=== PATIENT | female | born 1995 | race Caucasian/White ===

== ENCOUNTER → 2025-09-12 13:13 | Outpatient (REF) | payer BC, SELFPAY | LOC: RAD 13:13 | PROVIDERS: ATTENDING PHYSICIAN Obstetrics & Gynecology; FAMILY PHYSICIAN Family Medicine | DX: O26.851 Spotting complicating pregnancy, first trimester (principal) | CPT/HCPCS: 76801; 76817 ==

== ENCOUNTER 2025-09-17 08:39 | Emergency (ER) | payer BC, SELFPAY ==
[2025-09-17 08:49] VITALS: BP 128/85
[2025-09-17 09:13] LABS: Urine Character Clear (Clear)
[2025-09-17 09:21] LABS: HCG, Urine Qualitative Screen Positive
--- NOTE | 2025-09-17 09:25 | ED.GENMED ---
History of Present Illness
General
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
Time Seen by Provider: 09/17/25 09:25
History of Present Illness
History of Present Illness:
FOCUSED PAST MEDICAL HISTORY
- Has had in the past
REVIEW OF OLD RECORDS
- No records this in [facility] but old records show mild to moderate preeclampsia in 2022
Note:
CHIEF COMPLAINT(S)
Vaginal bleeding during early .
HISTORY OF PRESENT ILLNESS
The patient is a 30-year-old female currently in her third , presenting with vaginal bleeding that commenced this morning. She reports this followed a chemical in May and a live in 2022. Her last menstrual
period began on July 30, making her currently seven weeks and one day . She initially had a positive test shortly before a missed period predicted to occur on August 25. The patient experienced spotting at the time of an
ultrasound conducted last week in the radiology department, which revealed no abnormalities. Today, she denies experiencing significant pain. The patient has an O-negative blood type.
PAST MEDICAL AND SURGICAL HISTORY
Reports chemical in May 2025.
SOCIAL DETERMINANTS AFFECTING HEALTH
No relevant social determinants affecting health were mentioned.
PHYSICAL EXAM
General: Alert, no acute distress.
Skin: Warm, dry.
Head: Normocephalic, atraumatic.
Neck: Supple, trachea midline.
Eye, Ears, Nose, and Throat: Oral mucosa moist.
Cardiovascular: Normal peripheral perfusion, no edema.
Respiratory: Respirations are non-labored.
Gastrointestinal: Abdomen nondistended.
Back: Normal range of motion, normal alignment.
Musculoskeletal: Normal range of motion, normal strength.
Neurological: Alert and oriented to person, place, time, and situation, No focal neurological deficit observed.
Psychiatric: Cooperative, appropriate mood and affect.
PLAN
- Repeat ultrasound to assess current status of .
- Obtain blood work, including blood type verification, due to the patients O-negative blood type.
- Administer Rho(D) immune globulin (RhoGAM) given the presence of bleeding with an Rh-negative blood type.
DIFFERENTIAL DIAGNOSIS
The Differential Diagnosis includes, in no particular order and is not limited to:
1. Threatened miscarriage
2. Ectopic
3. Subchorionic hemorrhage
4. Complete miscarriage
5. Molar
6. Implantation bleeding
7. Cervical polyps
8. Infection/inflammation of the reproductive tract
9. Coagulation disorder
10. Physiological bleeding in early
RADIOLOGY
- Ultrasound shows live IUP but also shows large subchorionic hemorrhage
LABS
- CBC normal, O- blood type, quant 57,000
SUMMARY OF ENCOUNTER
The patient, a 30-year-old female currently in her third , presented to the emergency department with vaginal bleeding during early . An ultrasound was conducted, which confirmed a normal live fetus within the uterus and ruled out
an ectopic . However, a subchorionic hemorrhage was identified, which was not present during a previous ultrasound. The patient was advised to abstain from intercourse and avoid inserting anything into the vagina until clearance by an
OB-Director Data Processing. The patient has an O-negative blood type, and it was determined that Rho(D) immune globulin (RhoGAM) administration was necessary due to the bleeding.
DISPOSITION
Discharge
ASSESSMENT
The patient presented with vaginal bleeding in early , suggestive of a subchorionic hemorrhage.
EMERGENCY TREATMENTS ADMINISTERED
Injection of Rho(D) immune globulin (RhoGAM) was administered.
MANAGEMENT OF THE PATIENTS CARE WAS DISCUSSED WITH
Contact was made with the OB-Director Data Processing at the [facility] in [place] to notify them of the subchorionic hemorrhage and to coordinate follow-up care regarding the patients condition.
PLAN
The patient was advised to follow up with her OB-Director Data Processing at the [facility] in [place]. Abstinence from intercourse and vaginal insertion were recommended until cleared by the OB-Director Data Processing.
INDEPENDENT REVIEW OF LABS AND INTERPRETATION OF TESTS
- My independent interpretation of the ultrasound reveals a normal live fetus in the uterus and a subchorionic hemorrhage of a larger size.
PATIENT EDUCATION AND COUNSELING
The patient was educated about the subchorionic hemorrhage, its general location at or near the placenta, and the potential for it to resolve on its own. The absence of intervention to prevent further bleeding was discussed, along with the
importance of following the OB-Gynecologists advice.
FOLLOW-UP INSTRUCTIONS
The patient is instructed to follow up with her OB-Director Data Processing at the [facility] in [place].
MEDICATION RECONCILIATION
Administered Rho(D) immune globulin (RhoGAM) injection due to the presence of bleeding with an Rh-negative blood type.
MEDICAL DECISION MAKING
- Number and Complexity of Problems Addressed: Chronic conditions affecting care - History of chemical in May. Differential diagnoses considered included threatened miscarriage, ectopic , subchorionic hemorrhage, complete
miscarriage, molar , implantation bleeding, cervical polyps, infection/inflammation of the reproductive tract, coagulation disorder, and physiological bleeding in early .
- Data:
- Category 1: My independent interpretation of the ultrasound confirms a large subchorionic hemorrhage.
- Category 3: Management was discussed with the patients OB-Director Data Processing at the [facility] in [place].
- Risk: Prescription medication management with Rho(D) immune globulin was initiated.
Consideration of Admission/Observation: Escalation of care including admission/observation was considered given the complexity and risk but there is reassurance from the ultrasound findings that do not reveal any acute life/organ-threatening
processes. The patients symptoms were managed with outpatient follow-up being safe.
DIAGNOSIS
- Subchorionic hemorrhage (O46.90)
- Threatened miscarriage (O20.0)
UPDATE
- I discussed case with blood bank and I have ordered RhoGAM 300 mcg given the patient's known negative Rh status
- Large subchorionic hemorrhage is new, notify Dr. Johnson; precautions given
Past History
Social History
Tobacco: Non-smoker
Alcohol: None
Drug: None
Phy Exam
Physical Exam
Physical Exam:
See HPI
Course
Orders/Labs/Results
Orders:
Orders
09/17/25 08:57
Test Result ONCE
09/17/25 09:00
HCG, Urine Qualitative Screen Urgent
Date Specimen was Collected: 09/17/25
Time Specimen was Collected: 08:58
Urinalysis Reflex To Culture Urgent
Date Specimen was Collected: 09/17/25
Time Specimen was Collected: 08:58
Urine Microscopic Reflex Cult Urgent
Urine Culture Urgent
VANNA Source: U
Specimen Description:
Date Specimen was Collected: 09/17/25
Time Specimen was Collected: 08:58
09/17/25 09:25
1st Trimester US [US 1st Trimester] Urgent
Comment:
Reason For Exam: preg vb
09/17/25 09:29
Rho (D) Immune Globulin [Rhogam] 300 mcg IM ONCE ONE
09/17/25 09:32
* Blood Bank Products Urgent
Blood Bank Products: *Rhogam - Full Dose
Quantity: 300mg
Transfuse Today: Yes
Reason: Other
Other reason: Vaginal bleeding/miscarriage
09/17/25 09:40
Type+Screen Urgent
BBK Wristband Number:
Beta HCG Quantitative Urgent
Is this a screen?: No
Complete Blood Count/With Diff Urgent
Abnormal Lab Results
09/17/25 09/17/25
09:00 09:40
RBC 4.16 L 10^6/uL
(4.20-5.40)
Hct 36.6 L %
(37.0-47.0)
Ur Occult Blood Reflex 3+ A
(Negative)
Leukocyte Esterase Rfl 1+ A
(Negative)
Urine RBC 3-6 A /HPF
(0-2)
Urine Bacteria (Reflex) Moderate A
(Negative)
09/17/25 09:40
Vital Signs
Initial and Last Documented VS:
Initial Vital Signs
Temp Pulse Resp BP Pulse Ox
36.9 C 100 20 128/85 96
09/17/25 08:49 09/17/25 08:49 09/17/25 08:49 09/17/25 08:49 09/17/25 08:49
Last Documented Vital Signs
Temp Pulse Resp BP Pulse Ox
36.6 C 99 16 116/69 100
09/17/25 10:00 09/17/25 12:00 09/17/25 12:00 09/17/25 12:00 09/17/25 12:00
*Pulse Oximetry
SaO2: 96
Oxygen Mode of Delivery: Room air
Patient hypoxic: no
*Critical Care Note
Total Time (30-74mins, 75-104mins- exclusive of procedures): Not Applicable
ED Attending Note
-
Portions of this chart may have been created with voice recognition software.� Occasional wrong word or��sound alike� substitutions may have occurred due to the inherent limitations of voice recognition software.
Discharge Plan
Departure
Patient Disposition: Home (Routine Discharge)
Date of Disposition: 09/17/25
Time of Disposition: 12:22
Patient with high blood pressure during this ER visit?: Yes
Discharge Problem:
Threatened miscarriage in early , Subchorionic hemorrhage in first trimester
Prescriptions:
No Action
prenat.vits,mauro,vso-tumo-wrcqo Tablet
1 tab PO DAILY
escitalopram oxalate [Lexapro] 10 mg Tablet
10 mg PO DAILY
acetaminophen 325 mg Tablet
650 mg PO Q4HPRN PRN (Reason: mild pain) Qty: 0 0RF
sennosides-docusate sodium [Senna Plus] 8.6-50 mg Tablet
1 tab PO DAILYPRN PRN (Reason: constipation) Qty: 0 0RF
ferrous sulfate [FeroSul] 325 mg (65 mg iron) Tablet
325 mg PO BID Qty: 1 0RF
ibuprofen 600 mg Tablet
600 mg PO Q6HPRN PRN (Reason: cramps) Qty: 0 0RF
Referrals:
Maldonado Hudson MD [Family Provider, Gynecology]
Activity Restrictions/Additional Instructions:
I notified Dr. Johnson, she also agrees that he should have pelvic rest meaning no sex, nothing in the vagina. She wants you to call their office tomorrow to get an appointment this week.
Interventions
Interventions:
*General Assessment Last Done: 09/17/25 09:51
*Neglect/Abuse Screening Last Done: 09/17/25 09:51
*ED COVID-19 Vaccine History Last Done: 09/17/25 08:49
*ED Influenza Vaccine History Last Done: 09/17/25 08:49
[facility] Fall Risk Assessment Tool Last Done: 09/17/25 08:40
*Risk Screen - Suicide (C-SSRS) Last Done: 09/17/25 08:49
ED-Female Genitourinary Assessment Last Done: 09/17/25 09:51
Discharge Date and Time
Print Language: LUX[place]
[2025-09-17 09:55] LABS: Hematocrit 36.6 % (37.0-47.0); Hemoglobin 12.6 g/dL (12.0-16.0); Mean Corp Hgb Conc. 34.4 g/dL (33.0-37.0); Mean Corpuscular Volume 88.0 fL (81.0-99.0); Nucleated Red Blood Cells % 0 %; Platelet Count 242 10^3/uL (130-400); Red Cell Dist. Width 11.6 % (11.5-14.5)
[2025-09-17 10:00] VITALS: BP 114/78
[2025-09-17 10:02] LABS: Urine Squamous Cell 0-2 /LPF (Few)
[2025-09-17 12:00] VITALS: BP 116/69
[2025-09-17] MEDS: RHOGAM 300 MCG IM (12:28)
== END 2025-09-17 12:31 | disposition home or self-care (01) ==
LOC: EMR 08:39
PROVIDERS: Emergency Medicine; EMERGENCY PHYSICIAN Emergency Medicine; FAMILY PHYSICIAN Obstetrics & Gynecology
DX: O20.0 Threatened abortion (principal); Z3A.01 Less than 8 weeks gestation of pregnancy
CPT/HCPCS: 99284; 96372; 76801; 81003; 81015; 81025; 84702; 85025; 86850; 86900; 86901; 87086; J2790

== ENCOUNTER → 2025-09-19 11:02 | Outpatient (REF) | payer BC, SELFPAY | LOC: RAD 11:02 | PROVIDERS: ATTENDING PHYSICIAN Obstetrics & Gynecology; FAMILY PHYSICIAN Family Medicine | DX: O26.851 Spotting complicating pregnancy, first trimester (principal) | CPT/HCPCS: 76801 ==